=== PATIENT | male | born 1965 | race Caucasian/White ===

== ENCOUNTER 2020-05-16 00:37 | Emergency (ER) | payer OTHER ==
[~2020-05-16] VITALS: Ht 190.5 cm; Wt 127.9 kg
[2020-05-16 00:46] VITALS: Ht 190.5 cm; Wt 127.9 kg
[2020-05-16] MEDS ORDERED: BACTRIM DS1 TAB PO (02:26)
[2020-05-16] MEDS ORDERED: PYR200 PO (02:26)
[2020-05-16 02:55] VITALS: BP 156/86
== END 2020-05-16 02:55 | disposition home or self-care (01) ==
LOC: ED 00:37
DX: N39.0 Urinary tract infection, site not specified (principal); E78.00 Pure hypercholesterolemia, unspecified; Z88.0 Allergy status to penicillin; Z88.6 Allergy status to analgesic agent; Z88.8 Allergy status to other drugs, medicaments and biological substances